=== PATIENT | male | born 1970 | race Caucasian/White ===

== ENCOUNTER 2017-04-12 12:03 | Inpatient (IN) | payer BC, OTHER ==
[~2017-04-12] VITALS: Ht 172.7 cm; Wt 97.5 kg
--- NOTE | 2017-04-12 12:10 | NUR ---
[id number], [id number] FROM HOME: S/P WITNESSED SEIZURE DURING PT. Hx OF CVA 07/06, IQ=016AL/DL IN THE FIELD. PLACED ON SEIZURE PRECAUTION. RESP IS EVEN AND UNLABORED WITH NAD NOTED. PLACED ON MONITOR. RUSSEL COLE AT BS FOR EVAL.
[2017-04-12] MEDS ORDERED: LORAZEPAM INJ 2 MG/ML VIAL IV ONE (12:30)
[2017-04-12] MEDS ORDERED: LORAZEPAM INJ 2 MG/ML VIAL ONE (12:30)
[2017-04-12 12:34] LABS: BASOPHILS # (AUTO) 0.1 /CMM (0.0-0.2); BASOPHILS % (AUTO) 0.6 % (0.0-2.0); EOSINOPHILS # (AUTO) 0.1 /CMM (0.0-0.7); EOSINOPHILS % (AUTO) 0.5 % (0.0-6.0); HEMATOCRIT 44 % (39-51); HEMOGLOBIN 14.5 g/dL (13.5-17.5); LYMPHOCYTES # (AUTO) 4.9 /CMM (0.8-4.8); LYMPHOCYTES % (AUTO) 50.7 % (20.0-44.0); MEAN CORPUSCULAR HEMOGLOBIN 28 PG (26.0-33.0); MEAN CORPUSCULAR HGB CONC 33 g/dl (31.0-36.0); MEAN CORPUSCULAR VOLUME 85 fL (80-96); MONOCYTES # (AUTO) 0.8 /CMM (0.1-1.30); MONOCYTES % (AUTO) 7.6 % (2.0-12.0); NEUTROPHILS # (AUTO) 4.1 /CMM (1.8-8.9); NEUTROPHILS % (AUTO) 40.6 % (43.0-81.0); PLATELET COUNT (AUTO) 351 /CMM (150-450); RDW COEFFICIENT OF VARIATION 12.2 (11.5-15.0); RED BLOOD CELL COUNT(AUTO) 5.12 MIL/uL (4.5-6.0)
[2017-04-12 12:39] LABS: CALCIUM, SERUM 8.9 mg/dL (8.5-10.1); CREATININE 1.2 mg/dL (0.6-1.3); POTASSIUM 4.5 mmol/L (3.5-5.1)
[2017-04-12] MEDS ORDERED: ALLO100T PO (14:26)
[2017-04-12] MEDS ORDERED: ACET-73 PO (14:26)
[2017-04-12] MEDS ORDERED: MELA3TAB PO (14:26)
[2017-04-12] MEDS ORDERED: CHOL400T11 PO (14:26)
[2017-04-12] MEDS ORDERED: FAMO20TA8 PO (14:26)
[2017-04-12] MEDS ORDERED: DOCU-170 PO (14:26)
[2017-04-12] MEDS ORDERED: FOLI1TAB16 PO (14:26)
[2017-04-12] MEDS ORDERED: LISI2.5T2 PO (14:26)
[2017-04-12] MEDS ORDERED: ASPI-991 PO (14:26)
[2017-04-12] MEDS ORDERED: LEVE500T20 PO (14:26)
[2017-04-12] MEDS ORDERED: OCULAR LUBRICANT EACHEYE (14:26)
[2017-04-12] MEDS ORDERED: BACL10TA PO (14:27)
--- NOTE | 2017-04-12 15:34 | NUR ---
REPORT GIVEN TO HIRO THORNE/CORTNEY THORNE "O", FOR MALIA
[2017-04-12 15:45] VITALS: BP 117/62
--- NOTE | 2017-04-12 15:45 | NUR ---
[facility] [place]MISSION PT TRANSFERRED FROM ER TO [facility] IN ROOM 320-1. ALERT AND ORIENTED X4. ADMITTED WITH DX OF STATUS POST SEIZURES. HX OF CVA, R.SIDE HEMAPHERESIS, AND SEIZURES. UPON ASSESSMENT, SKIN IS INTACT. IV ON LEFT AC #18. RIGHT SIDED WEAKNESS. NO EDEMA NOTED. ABLE TO MOVE IN BED INDEPENDENTLY WITH MINIMAL ASSISTANCE. ABLE TO AMBULATE WITH ASSISTANCE/ CANE. PT CONTINENT BUT WILL WANT TO KEEP DIAPER ON THROUGHOUT THE DAY. ROOM AIR SATING AT 99%. NO SOB, NO DISTRESS, NO PAIN NOTED. ON 2GM SODIUM DIET. ALL LABS ARE WNL. COUSIN AND HER ARE AT BEDSIDE. LIVES WITH COUSIN/ AT HOME. TOOK ALL EVENING MEDICATIONS ORDERED. SEIZURE PRECAUTIONS IN PLACE, FALL PRECAUTIONS IN PLACE. RESTING COMFORTABLY IN BED. CALL LIGHT WITHIN REACH. INSTRUCTED TO CALL FOR ASSISTANCE.
[2017-04-12 16:00] VITALS: BP 117/62
[2017-04-12] MEDS ORDERED: Medication Not On Formulary EA (Melatonin 3 MG) PO PRN (16:00)
[2017-04-12] MEDS ORDERED: LORAZEPAM INJ 2 MG/ML VIAL IV PRN (16:00)
[2017-04-12] MEDS ORDERED: POLYVINYL ALCOHOL/POVIDONE 0.4 ML DROPERETTE EACHEYE PRN (16:30)
[2017-04-12] MEDS: DOCUSATE SODIUM 100 MG CAPSULE PO SCH (17:09)
[2017-04-12] MEDS: BACLOFEN (10 MG) 10 MG TABLET PO SCH (17:10)
[2017-04-12 17:33] LABS: APPEARANCE,URINE CLEAR (CLEAR); BILIRUBIN,URINE NEGATIVE (NEGATIVE); BLOOD, URINE 2+ Ery/uL (NEGATIVE); COLOR,URINE YELLOW (YELLOW); KETONES,URINE NEGATIVE (NEGATIVE); LEUKOCYTE ESTERASE ,URINE NEGATIVE (NEGATIVE); NITRITE, URINE NEGATIVE (NEGATIVE); PH,URINE 6.5 (5.0-8.0); PROTEIN,URINE NEGATIVE (NEGATIVE); UGLUCOSE NEGATIVE (NEGATIVE); UROBILINOGEN,URINE 0.2 EU/dL (0.2)
[2017-04-12 17:45] LABS: BACTERIA,URINE Rare /HPF (None Seen); SQUAMOUS EPITHELIAL CELL,UR Few /HPF (None Seen); WBC,URINE 0-2 /HPF (0-3)
--- NOTE | 2017-04-12 18:50 | NUR ---
MED SURGE RN: CLOSING NOTES PT ALERT AND ORIENTED X4. TOOK ALL EVENING MEDICATIONS ON TIME. NO ADVERSE REACTIONS NOTED. NO DISTRESS, NO SOB NOTED. NO S/S OF SEIZURES NOTED. RESTING COMFORTABLY IN BED. FALL PRECAUTIONS IN PLACE. SEIZURES PRECAUTIONS IN PLACE. CALL LIGHT WITHIN REACH.
--- NOTE | 2017-04-12 19:10 | NUR ---
MS RN NOTES RECEIVED PT IN BED,RESTING COMFORTABLY, AROUSES EASILY. FAMILY AT BED SIDE. NO DISTRESS, NO SOB NOTED. RESPIRATION IS EVEN AND UNLABORED. IV SITE ON LEFT AC INTACT AND PATENT. NO S/S OF INFILTRATION NOTED. NO C/O ANY PAIN OR DISCOMFORT AT THIS TIME. ALL NEEDS ATTENDED. KEPT COMFORTABLE. SAFETY PRECAUTIONS, SEIZURE PRECAUTION AND ASPIRATION PRECAUTION OBSERVED. CALL LIGHT WITHIN REACH. WILL CONTINUE TO MONITOR.
[2017-04-12 20:00] VITALS: BP 123/64
[2017-04-12 22:00] VITALS: BP 123/64
[2017-04-12] MEDS: LEVETIRACETAM (250 MG) 250 MG TABLET PO SCH (22:17)
[2017-04-12] MEDS: ATORVASTATIN 10 MG TABLET PO SCH (22:17)
--- NOTE | 2017-04-13 01:42 | NUR ---
PT SLEEPING AT THIS TIME. NO DISTRESS, NO SOB. AROUSES EASILY. SAFETY AND SEIZURE PRECAUTION OBSERVED. NO C/O PAIN OR DISCOMFORT AT THIS TIME. CALL LIGHT WITHIN REACH. WILL CONT TO MONITOR.
--- NOTE | 2017-04-13 06:29 | NUR ---
MS RN NOTES PT IN BED, RESTING COMFORTABLY AT THIS TIME. AROUSES EASILY. NO DISTRESS, NO SOB NOTED. RESPIRATION IS EVEN AND UNLABORED. IV SITE ON LEFT AC INTACT AND PATENT. NO S/S OF INFILTRATION NOTED. NO C/O ANY PAIN OR DISCOMFORT AT THIS TIME. ALL NEEDS ATTENDED. KEPT COMFORTABLE. SAFETY PRECAUTIONS, SEIZURE PRECAUTION AND ASPIRATION PRECAUTION OBSERVED. CALL LIGHT WITHIN REACH. WILL ENDORSE TO NEXT SHIFT FOR MALIA.
--- NOTE | 2017-04-13 07:47 | NUR ---
MED SURGE RN: INITIAL NOTE RECEIVED PT A/O X3. RESTING COMFORTABLY IN BED. NO DISTRESS NOTED. NO PAIN NOTED. NO SOB NOTED. CALL LIGHT WITHIN REACH.
[2017-04-13 08:00] VITALS: BP 138/65
[2017-04-13] MEDS: LEVETIRACETAM (250 MG) 250 MG TABLET PO SCH ×2 (08:24→21:26)
[2017-04-13] MEDS: ALLOPURINOL 100 MG TABLET PO SCH (08:24)
[2017-04-13] MEDS: FOLIC ACID 1 MG TABLET PO SCH (08:24)
[2017-04-13] MEDS: CHOLECALCIFEROL (VITAMIN D 3) 400 UNIT TABLET PO SCH (08:24)
[2017-04-13] MEDS: ASPIRIN EC 81 MG TABLET.DR PO SCH (08:25)
[2017-04-13] MEDS: BACLOFEN (10 MG) 10 MG TABLET PO SCH ×3 (08:25→16:25)
[2017-04-13] MEDS: DOCUSATE SODIUM 100 MG CAPSULE PO SCH ×2 (08:25→16:25)
[2017-04-13] MEDS: LISINOPRIL (5MG) 5 MG TABLET PO SCH (08:25)
[2017-04-13] MEDS ORDERED: LEVETIRACETAM (250 MG) 250 MG TABLET PO SCH (09:00)
[2017-04-13] MEDS ORDERED: LEVETIRACETAM (250 MG) 250 MG TABLET PO ONE (10:00)
[2017-04-13 10:25] LABS: ALBUMIN 3.6 g/dL (3.4-5.0); BILIRUBIN,DIRECT 0.1 mg/dL (0.0-0.2); BILIRUBIN,TOTAL 0.5 mg/dL (0.2-1.0); MAGNESIUM 1.9 mg/dL (1.8-2.4); PHOSPHORUS 3.5 mg/dL (2.5-4.9); TOTAL PROTEIN, SERUM 7.5 g/dL (6.4-8.2)
[2017-04-13 16:00] VITALS: BP 116/75
--- NOTE | 2017-04-13 18:39 | NUR ---
MED SURGE RN: CLOSING NOTE PT ALERT AND ORIENTED X3. TOOK ALL MEDICATIONS ON TIME. NO ADVERSE REACTIONS NOTED. NO PAIN NOTED. NO DISTRESS NOTED. VS STABLE. NO N/V NOTED. FALL PRECAUTIONS IN PLACE. CALL LIGHT WITHIN REACH. RESTING COMFORTABLY IN BED.
--- NOTE | 2017-04-13 19:10 | NUR ---
MS RN NOTES RECEIVED PT IN BED, AWAKE, A/O X 3. FAMILY AT BED SIDE. NO DISTRESS, NO SOB NOTED. RESPIRATION IS EVEN AND UNLABORED. IV SITE ON LEFT AC INTACT AND PATENT. NO S/S OF INFILTRATION NOTED. NO C/O ANY PAIN OR DISCOMFORT AT THIS TIME. ALL NEEDS ATTENDED. KEPT COMFORTABLE. SAFETY PRECAUTIONS AND SEIZURE PRECAUTION OBSERVED. CALL LIGHT WITHIN REACH. WILL CONTINUE TO MONITOR.
[2017-04-13 20:00] VITALS: BP 123/74
[2017-04-13] MEDS: ATORVASTATIN 10 MG TABLET PO SCH (21:26)
--- NOTE | 2017-04-14 06:53 | NUR ---
MS RN NOTES PT IN BED, RESTING COMFORTABLY AT THIS TIME. A/O X 3. NO DISTRESS, NO SOB NOTED. RESPIRATION IS EVEN AND UNLABORED. IV SITE ON LEFT AC INTACT AND PATENT. NO S/S OF INFILTRATION NOTED. NO S/S ANY PAIN OR DISCOMFORT AT THIS TIME. ALL NEEDS ATTENDED AND MET. KEPT COMFORTABLE. SAFETY PRECAUTIONS AND SEIZURE PRECAUTION OBSERVED. CALL LIGHT WITHIN REACH. WILL ENDORSE TO NEXT SHIFT FOR MALIA.
--- NOTE | 2017-04-14 07:30 | NUR ---
RN MS NOTES PT IN BED, ASLEEP, EASILY AROUSABLE, ALERT AND ORIENTED, DENIES PAIN, NOT IN DISTRESS, CALL LIGHT WITHIN REACH, ASSISTED WITH BREAKFAST, KEPT COMFORTABLE IN BED.
[2017-04-14 08:00] VITALS: BP 124/79
[2017-04-14] MEDS: LEVETIRACETAM (250 MG) 250 MG TABLET PO SCH (09:16)
[2017-04-14] MEDS: ALLOPURINOL 100 MG TABLET PO SCH (09:16)
[2017-04-14] MEDS: DOCUSATE SODIUM 100 MG CAPSULE PO SCH ×2 (09:16→16:35)
[2017-04-14] MEDS: ASPIRIN EC 81 MG TABLET.DR PO SCH (09:17)
[2017-04-14] MEDS: BACLOFEN (10 MG) 10 MG TABLET PO SCH ×3 (09:17→16:35)
[2017-04-14] MEDS: LISINOPRIL (5MG) 5 MG TABLET PO SCH (09:17)
[2017-04-14] MEDS: FOLIC ACID 1 MG TABLET PO SCH (09:17)
[2017-04-14] MEDS: CHOLECALCIFEROL (VITAMIN D 3) 400 UNIT TABLET PO SCH (09:31)
--- NOTE | 2017-04-14 12:30 | NUR ---
RN MS NOTES PT IN BED, RESTING, ALERT, NO COMPLAINT OF PAIN, NOT IN DISTRESS, PT SEEN BY LADONNA GOODE, PLAN OF CARE DISCUSSED WITH PT AND PT'S COUSIN FRITZ, VERBALIZED UNDERSTANDING.
[2017-04-14] MEDS ORDERED: LEVE250T2 PO (13:28)
[2017-04-14] MEDS ORDERED: ATOR10TA PO (13:28)
[2017-04-14 16:00] VITALS: BP 129/59
--- NOTE | 2017-04-14 18:29 | NUR ---
RN MS NOTES PT IN BED, AWAKE, ALERT AND ORIENTED, NO COMPLAINT OF PAIN, NOT IN DISTRESS, DISCHARGE ORDER RECEIVED FROM LADONNA FACILITIES AND GROUNDS DIRECTOR, PT AND FAMILY INFORMED, DISCHARGE AND MEDICATION INSTRUCTIONS PROVIDED TO PT, VERBALIZED UNDERSTANDING, BELONGINGS ACCOUNTED FOR, REPORT GIVEN TO SPENCER THORNE OF [facility], AWAITING AMBULANCE CRYSTAL MOUNTER.
--- NOTE | 2017-04-14 19:30 | NUR ---
ms/rn opening notes Patient in bed, alert, oriented x3. 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 Patient ID band and tavares FA iv removed, tolerate w/ no s/s of complication. belongings recieved. B/P check at 140-90, pulse 78, R 19. T 98. No pain verbalized. Informed and report given to EMT. Education provided for safety w/ family member. skin intact. 2 EMT arrived and patient picked up on a gurney. w./ family member.
== END 2017-04-14 19:47 | DRG 101 ==
LOC: ER 12:06 → MED 15:28
PROVIDERS: ADMIT Nurse Practitioner Acute Care; ATTEND Nurse Practitioner Acute Care
DX: G40.409 Other generalized epilepsy and epileptic syndromes, not intractable, without status epilepticus (principal); I69.351 Hemiplegia and hemiparesis following cerebral infarction affecting right dominant side; I10 Essential (primary) hypertension; I69.320 Aphasia following cerebral infarction; M10.9 Gout, unspecified
CPT/HCPCS: 36415; 70450-TC; 80048-TC; 80076-TC; 81000-TC; 83735-TC; 84100-TC; 85025-TC; 87081-TC; 87086-TC; 95819-TC; 97116-TC; 97530-TC; A4606; A6402; J2060; Z7610